=== PATIENT | male | born 1960 | race Caucasian/White ===

== ENCOUNTER → 2017-07-31 | Day surgery (SDC) | payer OTHER ==
[~2017-07-31] MED LIST: ACETAMINOPHEN 1000 MG/100 ML 100 ML IV ONE; ACETAMINOPHEN/HYDROcodone 325 MG/5 MG TAB ONE; BUPIVACAINE/EPINEPHRINE 0.25% 50 ML VIAL ONE; KETOROLAC TROMETHAMINE 30 MG/ML (IVP) VIAL IV PUSH ONE; LACTATED RINGER'S 1000 ML INJ 1,000 ML ONE; LORazepam 2 MG/ML VIAL ONE; MEPERIDINE HCL 25 MG/ML VIAL ONE; MIDAZOLAM HCL 2 MG/2 ML VIAL ONE; MORPHINE SULFATE 4 MG/ML INJ ONE; ONDANSETRON HCL 4 MG/2 ML VIAL IV PUSH ONE; PROPOFOL 500 MG/50 ML BTL IV ONE; VANCOMYCIN HCL 1000 MG VIAL ONE; ceFAZolin INJ 1,000 MG VIAL ONE
--- NOTE | 2017-08-01 10:47 | MP ---
cc: DONALD GRAHAM M.D. DATE OF SURGERY 07/31/2017 PROCEDURE 1. Laparoscopic cholecystectomy 2. Primary repair of umbilical hernia PREOPERATIVE DIAGNOSIS Symptomatic cholelithiasis with biliary colic. POSTOPERATIVE DIAGNOSIS Acute cholecystitis ANESTHESIA General endotracheal SURGEON Donald Graham MD [employer] JUANPABLO Lopez ESTIMATED BLOOD LOSS 50 mL FLUIDS 1050 mL crystalloid COMPLICATIONS None DRAINS None SPECIMEN Gallbladder and stones to pathology. FINDINGS Acute cholecystitis with stones in the infundibulum of the gallbladder. PROCEDURE IN DETAIL The patient was taken to the operating room and placed on the operating table in the supine position. After an adequate level of general endotracheal anesthesia was achieved, the abdomen was prepped and draped in the usual fashion. Time-out was taken confirming the correct patient site and procedure to be performed. Skin and subcutaneous tissue was infiltrated with local anesthetic. An incision made in the umbilicus and carried through the fascia sharply. The peritoneal cavity was directly visualized. The preperitoneal fat was dissected free from the surrounding structures and reduced into the abdominal cavity. A 12 mm balloon trocar was inserted and the balloon inflated. The abdomen was insufflated. The patient was placed in reverse Trendelenburg position. Three 5 mm trocars were then placed with the first in the upper midline to the right of the falciform ligament and the second and third in the right subcostal region. All entered the abdominal cavity under direct vision uneventfully. The fundus of the gallbladder was then grasped and retracted upward. The gallbladder was then punctured and white bile was removed. Over 150 cc of bile was removed allowing the gallbladder to be completely collapsed. This allowed for easier manipulation of the gallbladder which appeared to have an intrahepatic component. The cystic artery was comprised of two branches with a smaller branch doubly clipped proximally and the distal side simply cauterized. This was divided allowing for easier manipulation of the remaining branch of the cystic artery and the cystic duct. The patient was noted to have a stone impacted into the of base of the infundibulum of the gallbladder. The cystic duct was circumferentially dissected, doubly clipped distally, singly clipped on the gallbladder side and divided. The larger branch of the cystic artery was then able to be doubly clipped proximally, singly clipped on the gallbladder side and divided. The gallbladder was then dissected off of liver bed with electro dissection. The gallbladder was placed into an EndoCatch device and removed via the umbilical port while observing via the upper 5 mm trocar site. The specimen was passed off table. The upper abdomen was revisualized where the cystic artery stumps, cystic duct stump, and liver bed were all seen to be clean and dry. All irrigation was aspirated from the abdominal cavity. Insufflation was discontinued and the upper abdominal trocars removed under direct vision. No bleeding was noted from the trocar sites during desufflation. The laparoscope and umbilical port were then removed. The fascia was closed in the umbilicus with 0-Prolene suture in an interrupted fashion. This allowed for closure of the umbilical defect in a primary fashion. When this was completed, the remaining local anesthetic was injected into each of the trocar sites. The umbilical port and the upper 5 mm trocar sites were all closed in the skin with 4-0 Vicryl in an interrupted buried fashion. The umbilicus was then dressed with a 4x4 and Tegaderm dressing and the other trocar sites were dressed with Steri-Strips. The patient was extubated and taken back to the recovery room in stable condition. He tolerated the procedure well. MD FROYLAN Patrick/DIANA /11:19 PM /10:34 AM MTDD
== END | disposition home or self-care (01) ==
LOC: ESDC 06:07
PROVIDERS: ATTEND Surgery Trauma Surgery
DX: K80.10 Calculus of gallbladder with chronic cholecystitis without obstruction (principal); K42.9 Umbilical hernia without obstruction or gangrene
CPT/HCPCS: 00750; 00790; 47562; 49585; 88304; J0131; J0690; J1885; J2060; J2175; J2250; J2270; J2405; J3010; J3370; J7120